=== PATIENT | female | born 1950 | race Caucasian/White ===

== ENCOUNTER → 2023-02-16 09:16 | Outpatient (CLI) | payer MEDICARE, SELFPAY ==
--- NOTE | ~2023-02-16 | CT_ITS ---
EXAMINATION: CT sinus wo con DATE: 02/16/2023 09:46 INDICATION: Chronic sphenoid sinusitis. TECHNIQUE: Computed tomography (CT) of the paranasal sinuses was performed without intravenous contra st. Iterative reconstruction technique was employed. The dose-length product was 439.29 mGy-cm. COMPARISON: None FINDINGS: There is mild mucosal thickening in the frontal and bilateral ethmoid sinuses. The maxillar y and sphenoid sinuses are clear. There is leftward deviation of the nasal septum with a left lateral spur. Right middle turbinate is paradoxical. There is a right-sided Kale cell. The osteomeatal uni ts are patent. IMPRESSION: 1. Mild mucosal thickening in the paranasal sinuses. 2. Leftward deviation of the nasal septum. Reviewed, dictated and finalized at location A.
== END ==
PROVIDERS: Visit Provider Otolaryngology
DX: H65.492 Other chronic nonsuppurative otitis media, left ear (principal); H91.20 Sudden idiopathic hearing loss, unspecified ear; J32.3 Chronic sphenoidal sinusitis; J39.2 Other diseases of pharynx; J34.2 Deviated nasal septum
CPT/HCPCS: 70486

== ENCOUNTER 2023-03-07 09:56 | Outpatient (CLI) | payer MEDICARE, SELFPAY | END 2023-03-07 09:57 | disposition home or self-care (01) | LOC: ANHBWCAUD 09:57 | PROVIDERS: Visit Provider Otolaryngology | DX: H90.3 Sensorineural hearing loss, bilateral (principal) | CPT/HCPCS: 92557; 92567 ==